=== PATIENT | female | born 1960 | race Caucasian/White ===

== ENCOUNTER 2017-03-10 12:48 | Emergency (ER) | payer MEDICARE | END 2017-03-10 15:08 | disposition home or self-care (01) | LOC: ER 12:48 | DX: S90.32XA Contusion of left foot, initial encounter (principal); M19.90 Unspecified osteoarthritis, unspecified site; F12.10 Cannabis abuse, uncomplicated; W19.XXXA Unspecified fall, initial encounter; Y93.89 Activity, other specified; Y92.89 Other specified places as the place of occurrence of the external cause; Y99.8 Other external cause status | CPT/HCPCS: 73630; 99284 ==